=== PATIENT | female | born 1950 | race Caucasian/White ===

== ENCOUNTER 2018-12-30 09:52 | Day surgery (SDC) | payer MEDICARE, BC ==
[2018-12-30] MEDS ORDERED: Propofol* 10 MG/ML 20 ML BTL ONE (11:39)
[2018-12-30] MEDS ORDERED: Lidocaine 2% PF * 5 ML VIAL ONE (11:39)
[2018-12-30 12:16] VITALS: BP 156/79
[2018-12-30] MEDS ORDERED: Lidocaine 1%* 5 ML VIAL ONE (13:36)
[2018-12-30] MEDS ORDERED: Cyclopentolate 1% OPTH.SOL* 2 ML BTL ONE (13:36)
[2018-12-30] MEDS ORDERED: Povidone Iodine 5% OPTH* 30 ML BTL ONE (13:36)
[2018-12-30] MEDS ORDERED: Neomycin/Polymy/Dex OPHTH.OIN* 3.5 GM ONE (13:36)
[2018-12-30] MEDS ORDERED: acetaZOLAMIDE TAB* 250 MG ONE (13:36)
[2018-12-30] MEDS ORDERED: Tropicamide 1% OPTH.SOL* BTL ONE (13:36)
[2018-12-30] MEDS ORDERED: Phenylephrine OPHTH SOL 2.5%* 2 ML ONE (13:36)
[2018-12-30] MEDS ORDERED: Tetracaine 0.5% OPTH.SOL 4 ML* 1 DROP BTL ONE (13:37)
[2018-12-30] MEDS ORDERED: Ketorolac 0.5% OPHTH (NF) 0.5 % 5 ML BTL ONE (13:37)
--- NOTE | 2018-12-30 16:32 | OP ---
DATE OF OPERATION: 12/30/18 - [facility] DATE OF : 48 SURGEON: Manoj Terrazas MD ANESTHESIA: Monitored anesthesia care. PRE-OP DIAGNOSIS: Cataract, left eye. POST-OP DIAGNOSIS: Cataract, left eye. OPERATIVE PROCEDURE: Extracapsular cataract extraction of the left eye with intraocular lens implant. IMPLANT: SN60WF 20.5 diopter lens to the left eye. COMPLICATIONS: None. DESCRIPTION OF PROCEDURE: The patient was given phenylephrine 2.5 % and cyclopentolate 1% eye drops to the operative eye in the preoperative area. The patient was taken to the operating room where a time-out was taken to identify the correct patient, site, and side of surgery. The patient's left eye was prepped and draped in the usual sterile fashion with 5% Betadine. A second time- out was taken to verify the correct patient, side, and site of surgery, as well as the correct lens implant. A lid speculum was placed to the left eye. A 1mm paracentesis blade was used to make a clear corneal incision. Preservative-free 1% lidocaine was injected into the anterior chamber. DisCoVisc was then injected into the anterior chamber. A 2.75 mm keratome blade was used to make a triplanar incision. A cystotome initiated a capsulorrhexis, which was completed with Utrata forceps in a continuous and curvilinear manner. Hydrodissection of the lens was performed with BSS on a cannula. The lens could be spun in a capsular bag. The phacoemulsification handpiece was used with a divide-and- conquer technique to remove the nucleus. The I/A handpiece then removed the residual cortical lens material. DisCoVisc was injected to inflate the capsular bag. The planned SN60WF 20.5 diopter lens was injected into the capsular bag. The residual DisCoVisc was removed from the eye with the I/A handpiece. The corneal incisions were hydrated and no leaks occurred at physiologic pressure around 20 mmHg per palpation. The lid speculum was removed and drapes were removed. Maxitrol ointment was placed to the surface of the operative eye. An adhesive patch and shield was then placed on the operative eye. The patient was taken to the postoperative area in stable condition. [id number]/[facility] #: [id number] [facility]
== END 2018-12-30 12:25 | disposition home or self-care (01) ==
LOC: OREAST 09:52
PROVIDERS: ATTEND Student in an Organized Health Care Education/Training Program
DX: H25.812 Combined forms of age-related cataract, left eye (principal); H43.813 Vitreous degeneration, bilateral; I10 Essential (primary) hypertension; E78.5 Hyperlipidemia, unspecified; E03.8 Other specified hypothyroidism; Z87.891 Personal history of nicotine dependence; M19.90 Unspecified osteoarthritis, unspecified site
CPT/HCPCS: A9270-GY; J2704; V2632